=== PATIENT | male | born 1960 | race African-American/Black ===

== ENCOUNTER 2018-01-20 15:47 | Observation (INO) | payer OTHER ==
[2018-01-20] MEDS ORDERED: FENTANYL CITR 100 MCG/2 ML ONE (16:00)
[2018-01-20] MEDS ORDERED: BUPIVACAINE 0.5% PF 10 ML VIAL ONE ×2 (16:05→19:34)
[2018-01-20] MEDS ORDERED: CEFAZOLIN/SWI 1gm 2 GM/20 ML SYR ONE (16:21)
--- NOTE | 2018-01-20 17:10 | RAD REPORT ---
EXAM DESCRIPTION: RAD - Hand Left 3 View - 01/20/2018 4:29 pm CLINICAL HISTORY: Smash injury distal fingers COMPARISON: None. FINDINGS: Fracture is present obliquely through the tuft distal first phalanx. Very minimal distract ion is seen. There is a comminuted fracture of the distal phalanx third digit with significant soft t issue injury. There are multiple free fracture fragments present. There is displacement and angulatio n within the significantly injured soft tissues. Comminuted fractures present involving the tuft of the fourth distal phalanx ventral displacement of the small fracture fragments. There is significant soft tissue injury distal fourth digit as well. Elsewhere in the hand no suspicious finding noted. No foreign body in the soft tissues confirmed. Sma ll skin contaminant sore present. IMPRESSION: Comminuted distal phalanx fracture is third and fourth digits. Minimal nondisplaced fracture tuft of the second digit
[2018-01-20] MEDS ORDERED: ONDANSETRON 4 MG/2 ML VIAL IV PRN (18:50)
[2018-01-20] MEDS ORDERED: ACETAMINOPHEN 500 MG TAB PO PRN (18:50)
--- NOTE | 2018-01-20 19:13 | EDPHYS ---
Physician Documentation [facility] Name: Baljit Avery Age: 57 yrs Sex: Male : 1960 Arrival Date: 01/20/2018 Time: 15:49 Bed 26 Private MD: ED Physician Fausto Freedman HPI: 01/20 16:52 This 57 yrs old Black Male presents to ER via Ambulatory with complaints of Finger jmm Injury. 16:52 The patient or guardian reports deformity, injury. The complaints affect the dorsal jmm aspect of distal phalanx of left index finger, dorsal aspect of distal phalanx of left middle finger, dorsal aspect of distal phalanx of left ring finger, left index fingernail, left middle fingernail and left ring fingernail. Onset: The symptoms/episode began/occurred acutely, just prior to arrival. Patient states his left hand was crushed while attaching a trailer to a truck. The trailer crushed his hand against cement. Patient states he is UTD on tetanus immunization. . Historical: - Allergies: 15:55 No Known Allergies; ch - PMHx: 15:55 Hyperlipidemia; Hypertension; ch - PSHx: 15:55 back, R finger; ch - Immunization history:: Adult Immunizations up to date. - Social history:: Smoking status: Patient/guardian denies using tobacco. - Ebola Screening: : Patient negative for fever greater than or equal to 101.5 degrees Fahrenheit, and additional compatible Ebola Virus Disease symptoms Patient denies exposure to infectious person Patient denies travel to an Ebola-affected area in the 21 days before illness onset No symptoms or risks identified at this time. ROS: 16:52 Constitutional: Negative for fever, chills, and weight loss, Cardiovascular: Negative jmm for chest pain, palpitations, and edema, Respiratory: Negative for shortness of breath, cough, wheezing, and pleuritic chest pain. 16:52 MS/extremity: Positive for pain, swelling. 16:52 Neuro: Negative for weakness. 16:52 All other systems are negative. Exam: 16:52 Head/Face: atraumatic. jmm 16:52 Constitutional: The patient appears alert, awake, uncomfortable. 16:52 Cardiovascular: Rate: normal. 16:52 Respiratory: the patient does not display signs of respiratory distress, Respirations: normal. 16:52 Musculoskeletal/extremity: ROM: lacerations and macerations noted to the left 2nd 3rd and 4th fingers. worse on the 3rd phalanx. 3rd distal phalanx cool to the touch. 16:52 Skin: multiple lacerations noted to the left 2nd, 3rd, and 4th distal phalanx. 16:52 Neuro: Orientation: is normal, Mentation: is normal, Memory: is normal, Gait: is steady. Vital Signs: 15:55 BP 182 / 92; Pulse 110; Resp 26; Temp 98.8; Pulse Ox 99% on R/A; Weight 85.28 kg; ch Height 5 ft. 11 in. (180.34 cm); Pain 10/10; 16:33 BP 171 / 106; Pulse 68; Resp 16; Pulse Ox 99% on R/A; mb3 19:00 BP 171 / 129; Pulse 72; Resp 18; Pulse Ox 99% on R/A; mb3 15:55 Body Mass Index 26.22 (85.28 kg, 180.34 cm) ch Laceration: 18:05 Wound Repair of 3cm ( 1.2in ) subcutaneous laceration to dorsal aspect of distal jmm phalanx of right index finger, dorsal aspect of distal phalanx of right middle finger and right middle fingernail. Distal neuro/vascular/tendon intact. Anesthesia: Digital block administered with 8 mls of 0.5% marcaine. Wound prep: Extensive cleansing with betadine by ri, Wound irrigation with saline by ri, Copious irrigation. Skin closed with 7 5-0 Prolene using simple sutures and sterile technique. Dressed with non-adherent dressing. Patient tolerated well. MDM: 16:[address] [facility] 16:52 Differential diagnosis: open fracture, laceration. Data reviewed: vital signs, nurses [facility] notes. 18:05 Data reviewed: radiologic studies, plain films. ED course: Dr. Freedman discussed the [facility] patient with Dr. Archuleta who will visit with the patient in the morning. Requests we admit the patient to hospitalist or PCP.. ED course: I discussed the patient with Dr. Cadet whom accepted admission. ED course: Patient will be admitted due to open fractures of the distal phalanx and hand surgery evaluation. Patient has been administered IV abx in the ED and the patient states he has had a tetanus immunization over the past 5 years. . 01/20 18:55 Order name: Basic Metabolic Panel [facility] 01/20 18:55 Order name: Basic Metabolic Panel [facility] 01/20 15:57 Order name: XRAY Hand LEFT 3 View; Complete Time: 17:56 01/20 18:55 Order name: CBC with Automated Diff [facility] 01/20 18:55 Order name: CBC with Automated Diff [facility] 01/20 16:59 Order name: Dressing - Wound; Complete Time: 19:[address] [facility] 01/20 16:59 Order name: Gloves, Sterile; Complete Time: 19:[address] [facility] 01/20 16:59 Order name: Setup Suture Tray; Complete Time: 19:[address] [facility] 01/20 18:55 Order name: CONS Physician Consult [facility] 01/20 18:55 Order name: NPO [facility] 01/20 18:55 Order name: Regular EDMS Administered Medications: 16:05 Drug: fentaNYL (PF) 50 mcg Route: IVP; Site: right antecubital; mb3 19:58 Follow up: Response: No adverse reaction mb3 16:35 Drug: Ancef 2 grams Route: IVPB; Infused Over: 30 mins; Site: right antecubital; mb3 19:57 Follow up: Response: No adverse reaction; IV Status: Completed infusion; IV Intake: mb3 100ml Disposition: 01/20/18 19:13 Hospitalization ordered by Linus Cadet for Observation. Preliminary diagnosis is Displaced fracture of distal phalanx of finger. - Bed requested for Telemetry/MedSurg (observation). - Status is Observation. mb3 - Condition is Stable. - Problem is new. - Symptoms have improved. UTI on Admission? No Addendum: 01/28/2018 11:52 Co-signature as Attending Physician, Fausto Freedman MD. g s Signatures: Dispatcher [employer] ED[facility] Nalini Jones RN RN ch Webb, Martha RN Analisa Delgado RN RN dw Mickail, Joel, PA PA jmm Starr, Gregory, MD MD gs Barnett, Mark, RN RN mb3 Corrections: (The following items were deleted from the chart) 01/20 19:31 19:13 Hospitalization Ordered by Linus Cadet MD for Observation. Preliminary diagnosis dw is Displaced fracture of distal phalanx of finger. Bed requested for Telemetry/MedSurg (observation). Status is Observation. Condition is Stable. Problem is new. Symptoms have improved. UTI on Admission? No. jmm 19:45 19:31 01/20/2018 19:13 Hospitalization Ordered by Linus Cadet MD for Observation. mw Preliminary diagnosis is Displaced fracture of distal phalanx of finger. Bed requested for Telemetry/MedSurg (observation). Status is Observation. Condition is Stable. Problem is new. Symptoms have improved. UTI on Admission? No. dw 20:27 19:45 01/20/2018 19:13 Hospitalization Ordered by Linus Cadet MD for Observation. mb3 Preliminary diagnosis is Displaced fracture of distal phalanx of finger. Bed requested for Telemetry/MedSurg (observation). Status is Observation. Condition is Stable. Problem is new. Symptoms have improved. UTI on Admission? No. mw
--- NOTE | 2018-01-20 19:13 | ER ---
Nurse's Notes [facility] Name: Baljit Avery Age: 57 yrs Sex: Male : 1960 Arrival Date: 01/20/2018 Time: 15:49 Bed 26 Private MD: Diagnosis: Displaced fracture of distal phalanx of finger Presentation: 01/20 15:53 Presenting complaint: Patient states: L hand crushed when hitching a trailer to the truck. Transition of care: patient was not received from another setting of care. Onset of symptoms was January 20, 2018 at 15:00. Risk Assessment: Do you want to hurt yourself or someone else? Patient reports no desire to harm self or others. Initial Sepsis Screen: Does the patient meet any 2 criteria? No. Patient's initial sepsis screen is negative. Does the patient have a suspected source of infection? No. Patient's initial sepsis screen is negative. Care prior to arrival: None. 15:53 Method Of Arrival: Ambulatory 15:53 Acuity: JAYNA 2 Triage Assessment: 15:55 General: Appears distressed, uncomfortable, Behavior is cooperative. Pain: Complains of pain in left hand. Musculoskeletal: Bony deformity noted of left hand. Historical: - Allergies: 15:55 No Known Allergies; - PMHx: 15:55 Hyperlipidemia; Hypertension; - PSHx: 15:55 back, R finger; - Immunization history:: Adult Immunizations up to date. - Social history:: Smoking status: Patient/guardian denies using tobacco. - Ebola Screening: : Patient negative for fever greater than or equal to 101.5 degrees Fahrenheit, and additional compatible Ebola Virus Disease symptoms Patient denies exposure to infectious person Patient denies travel to an Ebola-affected area in the 21 days before illness onset No symptoms or risks identified at this time. Screenin:05 Abuse screen: Denies threats or abuse. Nutritional screening: No deficits noted. mb3 Tuberculosis screening: No symptoms or risk factors identified. Fall Risk None identified. Assessment: 16:05 General: General: Appears distressed, uncomfortable, well groomed, Behavior is mb3 cooperative, appropriate for age, anxious. 16:05 Pain: Complains of pain in left hand. Neuro: No deficits noted. Level of Consciousness mb3 is awake, alert, obeys commands. Cardiovascular: No deficits noted. Heart tones S1 S2 present Capillary refill < 3 seconds Patient's skin is warm and dry. Respiratory: No deficits noted. Airway is patent Respiratory effort is even, unlabored, Respiratory pattern is regular, symmetrical, Breath sounds are clear bilaterally. GI: No deficits noted. No signs and/or symptoms were reported involving the gastrointestinal system. : No deficits noted. No signs and/or symptoms were reported regarding the genitourinary system. Musculoskeletal: partial amputation to 2nd and 3rd finger of left hand. Injury Description: Crush injury sustained to dorsal aspect of distal phalanx of left index finger, dorsal aspect of distal phalanx of left middle finger, dorsal aspect of middle phalanx of left middle finger, dorsal aspect of distal phalanx of left ring finger, dorsal aspect of middle phalanx of left ring finger and left index fingernail is macerated Deformity sustained to dorsal aspect of distal phalanx of left middle finger. 19:02 Reassessment: Patient and/or family updated on plan of care and expected duration. Pain mb3 level reassessed. Patient is alert, oriented x 3, equal unlabored respirations, skin warm/dry/pink. repair done by Brandon MORRIS, waiting on admit room Patient states symptoms have improved. Vital Signs: 15:55 BP 182 / 92; Pulse 110; Resp 26; Temp 98.8; Pulse Ox 99% on R/A; Weight 85.28 kg; Height 5 ft. 11 in. (180.34 cm); Pain 10/10; 16:33 BP 171 / 106; Pulse 68; Resp 16; Pulse Ox 99% on R/A; mb3 19:00 BP 171 / 129; Pulse 72; Resp 18; Pulse Ox 99% on R/A; mb3 15:55 Body Mass Index 26.22 (85.28 kg, 180.34 cm) ED Course: 15:49 Patient arrived in ED. 15:52 Brandon Jo PA is PHCP. [facility] 15:52 Fausto Fredeman MD is Attending Physician. [facility] 15:54 Triage completed. 15:55 Arm band placed on left wrist. Patient placed in an exam room, on a stretcher. 15:57 Stephen Nick, TERRANCE is Primary Nurse. mb3 16:00 Patient has correct armband on for positive identification. Bed in low position. Call mb3 light in reach. Side rails up X 1. 16:05 Inserted saline lock: 18 gauge in right antecubital area, using aseptic technique. mb3 Blood collected. 16:29 XRAY Hand LEFT 3 View In Process Unspecified. EDMS 19:11 Linus Cadet MD is Hospitalizing Provider. jmm 19:47 No provider procedures requiring assistance completed. Patient admitted, IV remains in mb3 place. Administered Medications: 16:05 Drug: fentaNYL (PF) 50 mcg Route: IVP; Site: right antecubital; mb3 19:58 Follow up: Response: No adverse reaction mb3 16:35 Drug: Ancef 2 grams Route: IVPB; Infused Over: 30 mins; Site: right antecubital; mb3 19:57 Follow up: Response: No adverse reaction; IV Status: Completed infusion; IV Intake: mb3 100ml Intake: 19:57 IV: 100ml; Total: 100ml. mb3 Outcome: 19:13 Decision to Hospitalize by Provider. jmm 19:48 Admitted to Med/surg accompanied by tech, via stretcher, room 221, with chart, Report mb3 called to Deanna Galvin RN 19:50 Condition: stable mb3 19:50 Instructed on the need for admit. 20:27 Patient left the ED. mb3 Signatures: Dispatcher [employer] EDMS Nalini Jones, RN RN Brandon Rodriguez PA PA jmm Barnett, Mark, RN RN mb3 Corrections: (The following items were deleted from the chart) 16:03 15:55 General: Appears in no apparent distress. uncomfortable, Behavior is cooperative, [facility] 16:58 16:54 General: mb3 mb3
[2018-01-20] MEDS: NA CHLORIDE 0.9% 1,000 ML IV SCH (21:17)
--- NOTE | 2018-01-20 21:47 | P.SSS ---
Patient History Date of Service: 01/20/18 Reason for admission: CRUSHED HAND TRYING TO HELP A FRIEND WITH TRAILER History of Present Illness: MR. 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 IT FELL ON HIS L HAND AND CRUSHED IT. Allergies No Known Allergies Allergy (Verified 01/20/18 21:22) Home Medications: ALPRAZolam [Alprazolam] 2 mg PO TIDP PRN 01/20/18 Amlodipine/Valsartan/Hcthiazid [Exforge Hct 10-320-25 mg Tab] 1 tab PO DAILY 03/02 Carisoprodol 1 tab PO QIDP PRN 01/20/18 Carvedilol 12.5 mg PO BID 01/20/18 Clonidine HCl [Catapres*] 0.2 mg PO BID 01/20/18 Hydrocodone/Acetaminophen [Vicodin Hp 10-325 mg Tablet] 1 each PO BID 01/20/18 Zolpidem Tartrate 5 mg PO BEDTIME PRN PRN 01/20/18 - Past Medical/Surgical History Has patient received pneumonia vaccine in the past: Yes Diabetic: No -: HTN -: hyperlipidemia -: Back surgery -: index finger surg - Family History Mother -: Hypertension, Stroke Father -: Hypertension, Stroke Sister -: Hypertension, Stroke - Social History Smoking Status: Never smoker Alcohol use: No CD- Drugs: No Caffeine use: Yes Place of Residence: Home Review of Systems 10-point ROS is otherwise unremarkable Musculoskeletal: Hand Pain (NOT MUCH WHEN I VISITED HIM.) Physical Examination - Vital Signs Temperature: 98.8 F Blood Pressure: 171/129 Pulse: 72 Respirations: 18 - Physical Exam General: Alert, Mild distress HEENT: Atraumatic, PERRLA, Mucous membr. moist/pink, EOMI, Sclerae nonicteric Neck: Supple, 2+ carotid pulse no bruit, No LAD, Without JVD or thyroid abnormality Respiratory: Clear to auscultation bilaterally, Normal air movement Cardiovascular: Regular rate/rhythm, Normal S1 S2 Gastrointestinal: Normal bowel sounds, No tenderness Musculoskeletal: No tenderness, Other (L HAND HAS OPEN WOUNDS WITH CRUSHED TWO MID FINGER,DISTAL.) Integumentary: No rashes Neurological: Normal gait, Normal speech, Normal strength at 5/5 x4 extr, Normal tone, Normal affect Lymphatics: No axilla or inguinal lymphadenopathy - Diagnosis (Problem(s)) (1) Crushing injury of hand Current Visit: Yes Status: Acute Plan: PER DR BUCIO I ASKED THE PA TO CALL OR AND BOOK A TIME FOR HIM HE WILL BE HERE ONLY OVERNIGHT. USUALLY INSURANCE COMPANIES ONLY APPROVE OBSERVATION STAY FOR THIS KIND OF ISSUES PAIN MX COVER THE WOUNDS UNTIL AM. - Disposition Disposition: ROUTINE DISCHARGE
[2018-01-20] MEDS ORDERED: ZOLPIDEM TARTRATE 5 MG TABLET PO PRN (21:49)
[2018-01-20] MEDS ORDERED: ALPRAZOLAM 1 MG TABLET PO PRN (21:49)
[2018-01-20 22:19] VITALS: BMI 26.2
[2018-01-20 22:36] LABS: Urine Appearance CLEAR; Urine Bilirubin NEGATIVE (NEG); Urine Blood TRACE (NEG); Urine Color YELLOW; Urine Glucose NEGATIVE (NEG); Urine Protein NEGATIVE (NEG); Urine Urobilinogen 0.2 mg/dL (0.2-1.0)
[2018-01-20 22:45] LABS: Urine Microscopic Reflex ORDER UMIC
[2018-01-20 23:06] LABS: Urine Bacteria <20 /HPF (NONE SEEN); Urine Culture Reflex Order NOT NEEDED; Urine RBC <5 /HPF (NONE SEEN)
[2018-01-21] MEDS ORDERED: CEFAZOLIN/SWI 1gm 1 GM/10 ML SYR ONE (00:11)
[2018-01-21] MEDS: NA CHLORIDE 0.9% 1,000 ML IV SCH ×3 (00:45→09:20)
[2018-01-21] MEDS ORDERED: CEFAZOLIN/SWI 1gm 1 GM/10 ML SYR IVP SCH ×2 (01:00→09:00)
[2018-01-21 04:55] LABS: Absolute Lymphocytes (CBC) 1.3 K/uL (0.7-4.9); Absolute Monocytes 0.6 K/uL (0.1-1.3); Absolute Neutrophil 3.1 K/uL (1.8-8.0); Basophils % 0.5 % (0-1.3); Hematocrit 36.4 % (39.6-49.0); Lymphocytes % 24.9 % (15.3-44.8); MCH 28.9 pg (27.0-35.0); MCV 89.5 fL (80-100); MPV 8.4 fL (7.6-11.3); RBC Red Blood Cell Count 4.06 M/uL (4.33-5.43)
[2018-01-21 05:09] LABS: BUN Blood Urea Nitrogen 10 mg/dL (6-20); Bicarbonate 28 mEq/L (21-31); Glucose Level 115 mg/dL (65-120); Potassium 3.5 mEq/L (3.6-5.0); Sodium Level 139 mEq/L (135-145)
[2018-01-21] MEDS: MORPHINE 4 MG/ML SYR IV PRN ×2 (05:37→12:41)
[2018-01-21] MEDS ORDERED: AMLODIPINE 10 MG TAB PO SCH (09:00)
[2018-01-21] MEDS ORDERED: VALSARTAN 160 MG TAB PO SCH (09:00)
[2018-01-21] MEDS ORDERED: hydroCHLOROthiazide 25 MG TAB PO SCH (09:00)
[2018-01-21] MEDS ORDERED: CARVEDILOL 12.5 MG TAB PO SCH (09:00)
[2018-01-21] MEDS ORDERED: cloNIDine HCl 0.1 MG TAB PO SCH (09:00)
[2018-01-21] MEDS ORDERED: MIDAZOLAM HCL 2 MG/2 ML INJ ONE (09:03)
[2018-01-21] MEDS ORDERED: PROPOFOL 200 MG/20 ML VIAL IV ONE (09:03)
[2018-01-21] MEDS ORDERED: LIDOCAINE 2% MPF 5 ML VIAL ONE (09:03)
[2018-01-21] MEDS ORDERED: FENTANYL CITR 100 MCG/2 ML ONE (09:04)
[2018-01-21] MEDS ORDERED: BUPIVACAINE 0.5% PF 10 ML VIAL SQ ONE (10:30)
[2018-01-21] MEDS ORDERED: BUPIVACAINE 0.5% PF 10 ML VIAL ONE (10:31)
[2018-01-21] MEDS ORDERED: MEPERIDINE HCL 25 MG/0.5 ML ONE (10:36)
--- NOTE | 2018-01-21 10:49 | RAD REPORT ---
EXAM DESCRIPTION: RAD - Hand Left 2 View - 01/21/2018 10:40 am CLINICAL HISTORY: Fracture fixation COMPARISON: January 20 FINDINGS: Portable C-arm views were obtained during fluoroscopic assisted placement of fracture fixa tion hardware. No suspicious or unexpected finding.
[2018-01-21 11:13] VITALS: O2SAT 100
[2018-01-21 12:24] VITALS: BP 147/87; TEMP 97.7
--- NOTE | 2018-01-21 21:38 | OP ---
Surgeon: Lawrence Archuleta MD Financial Coordinator: Emile. Preoperative Diagnosis: Open fracture of the tips of the left index, middle, and ring finger. Postoperative Diagnosis: Open fracture of the tips of the left index, middle, and ring finger. Procedure Performed: Debridement of skin, subcutaneous tissue, index, middle, and ring, debridement of bone of the middle, simple closure of 4 cm of the index, 6 cm of the ring, flap closure of the mid dle, open reduction and internal fixation of distal phalanx of left middle finger with K-wire arthrod esis of the distal interphalangeal joint and splint, nail bed repair of the index, middle, and ring f mayela. Anesthesia: General. Procedure In Detail: After satisfactory induction of general anesthesia, left hand was prepped with Betadine scrub, Betadine paint, and dry sterile drapes were applied in the usual manner. Arm was elevated and exsanguinated with Esmarch. Tourniquet was inflated to 250 mmHg Hand was placed on the [place] table. The wounds were jet lavaged, irrigated with 3 L of dilute Beta dine solution after skin, subcu tissue were debrided and nail plate was removed. The patient then bray d the fingers approached. The ring finger was approached first. The nail bed was debrided full skin and then the nail bed repair with 6-0 PDS and the skin closed with 4-0 Prolene. Length of the incis ion was approximately 6 cm total. The finger was approached next. Again skin and subcutaneous tissu e has been debrided, but repaired with 6-0 PDS and then skin closed with 4-0 Prolene simple sutures. Attention was turned to the middle finger, which had significant damage. Skin and subcutaneous tiss ue were debrided as well as the portions of the bone and then a K-wire was placed from distal to prox imal through the distal fracture fragment into the proximal fragment and then arthodesing the DIP arturo nt with 0.028 was used. Then, nail bed was repaired with 6-0 PDS and then skin was cut, flaps advanc ed, closed with 4-0 Prolene simple sutures. Nail plates were placed back and sewn in place proximall y with 4-0 Prolene. Tourniquet released. Dressed with Xeroform, 2 inch Alex, and splint holding th e PIP, DIP with extension of the middle finger. The patient tolerated the procedure well and well an d returned to recovery. RADHA/FERCHO Voice ID: [id number] Report ID: [id number]
== END 2018-01-21 14:08 | disposition home or self-care (01) ==
LOC: ER 15:47 → ERHOLD 18:48 → 2ND 19:52
PROVIDERS: ADMIT Internal Medicine; ATTEND Internal Medicine
PROC: 0XQTXZZ Repair Left Ring Finger, External Approach (ICD-10-PCS; 2018-01-21)
PROC: 0PDV0ZZ Extraction of Left Finger Phalanx, Open Approach (ICD-10-PCS; 2018-01-21)
PROC: 0HQQXZZ Repair Finger Nail, External Approach (ICD-10-PCS; 2018-01-21)
PROC: 0PSV04Z Reposition Left Finger Phalanx with Internal Fixation Device, Open Approach (ICD-10-PCS; 2018-01-21)
PROC: 0XQPXZZ Repair Left Index Finger, External Approach (ICD-10-PCS; principal; 2018-01-21 09:00)
DX: S62.601B Fracture of unspecified phalanx of left index finger, initial encounter for open fracture (principal); S62.603B Fracture of unspecified phalanx of left middle finger, initial encounter for open fracture; S62.605B Fracture of unspecified phalanx of left ring finger, initial encounter for open fracture; W23.0XXA Caught, crushed, jammed, or pinched between moving objects, initial encounter; Y92.009 Unspecified place in unspecified non-institutional (private) residence as the place of occurrence of the external cause; I10 Essential (primary) hypertension; E78.5 Hyperlipidemia, unspecified
CPT/HCPCS: 36415; 80048; 81003; 81015; 85025; 88304; 88305; 88311; 96365; 96366; 96375; 99285; G0378; J0690; J2175; J2250; J3010; J7030

== ENCOUNTER 2018-02-03 08:11 | Day surgery (SDC) | payer OTHER ==
[2018-02-03] MEDS ORDERED: Ringers Lactate 1,000 ML IV ONE (08:23)
[2018-02-03] MEDS ORDERED: FENTANYL CITR 100 MCG/2 ML ONE (08:32)
[2018-02-03] MEDS ORDERED: PROPOFOL 200 MG/20 ML VIAL IV ONE (08:32)
[2018-02-03] MEDS ORDERED: MIDAZOLAM HCL 2 MG/2 ML INJ ONE (08:32)
[2018-02-03] MEDS ORDERED: LIDOCAINE 1% MPF 5 ML VIAL ONE (08:32)
[2018-02-03] MEDS ORDERED: CEFAZOLIN/SWI 1gm 1 GM/10 ML SYR ONE (08:37)
[2018-02-03] MEDS ORDERED: KETOROLAC 30 MG/ML INJ ONE (09:16)
[2018-02-03] MEDS ORDERED: BUPIVACAINE 0.5% PF 10 ML VIAL ONE (09:26)
[2018-02-03] MEDS ORDERED: MEPERIDINE HCL 25 MG/0.5 ML ONE ×3 (09:46→09:54)
[2018-02-03] MEDS ORDERED: HYDROMORPHONE HCL 1 MG/ML INJ ONE (09:55)
[2018-02-03] MEDS: HYDROMORPHONE HCL 1 MG/ML INJ ONE ×2 (10:00→10:05)
[2018-02-03] MEDS ORDERED: MEPERIDINE HCL 50 MG/ML AMP ONE (10:18)
[2018-02-03 10:50] VITALS: O2SAT 98
[2018-02-03 12:33] VITALS: BP 120/77; TEMP 98
--- NOTE | 2018-02-03 21:07 | OP ---
Surgeon: Lawrence Archuleta MD Load Manager: Emile. Preoperative Diagnosis: Gangrene of the left middle finger, status post crush injury. Postoperative Diagnosis: Gangrene of the left middle finger, status post crush injury. Procedure: Debridement of skin, subcutaneous tissue, bone, and flap closure. Anesthesia: General. Procedure In Detail: After satisfactory induction of general anesthesia, the left arm was prepped wi th Betadine scrub, Betadine paint, dry sterile drapes placed in the usual manner. The arm was elevat ed, exsanguinated with an Esmarch, tourniquet inflated to 250 mmHg. Hand was placed on a [place] tab le. Sutures were removed from the previous closure, where the patient had dry gangrene of the left l ittle finger tip. The patient's gangrenous finger was excised. Bone fragments were then removed by using a bone cutter, and then the bone was filed. The wound was jet lavaged and irrigated with 3 L o f dilute Betadine solution. Then, the patient had the volar flap advanced, lateral flap excised, and wound closed with 4-0 prolene simple sutures. Dressed with Xeroform, 2 inch Alex. The patient erlinda erated the procedure well and returned to Recovery. RADHA/MODL Voice ID: [id number] Report ID: [id number]
== END 2018-02-03 11:35 | disposition home or self-care (01) ==
LOC: OR 08:11
PROVIDERS: ATTEND Specialist
PROC: 0HXCXZZ Transfer Left Upper Arm Skin, External Approach (ICD-10-PCS; 2018-02-03)
PROC: 0PBV0ZZ Excision of Left Finger Phalanx, Open Approach (ICD-10-PCS; principal; 2018-02-03 09:00)
DX: M87.245 Osteonecrosis due to previous trauma, left finger(s) (principal)
CPT/HCPCS: 88304; J0690; J1170; J2175; J2250; J3010

== ENCOUNTER 2019-04-21 17:41 | Emergency (ER) | payer OTHER ==
[2019-04-21 20:00] LABS: Albumin 4.9 g/dL (3.4-5.0); Bilirubin Direct 0.2 mg/dL (0-0.2); Bilirubin Total 0.6 mg/dL (0.2-1.0); Potassium 3.6 mmol/L (3.5-5.1); Protein, Total 9.2 g/dL (6.4-8.2)
[2019-04-21 20:05] LABS: Absolute Lymphocytes (CBC) 1.4 K/uL (0.7-4.9); Basophils % 0.3 % (0-1.3); Hematocrit 45.5 % (39.6-49.0); Lymphocytes % 13.2 % (15.3-44.8); MPV 9.4 fL (7.6-11.3)
[2019-04-21 20:07] LABS: Urine Mucus 2+ /HPF (NONE SEEN); Urine RBC <5 /HPF (NONE SEEN)
[2019-04-21 20:08] LABS: Urine Bacteria 20-50 /HPF (NONE SEEN)
[2019-04-21 20:09] LABS: Urine Amorphous Sediment 2+ /HPF (NONE SEEN); Urine Culture Reflex Order REFLEXED
[2019-04-21 20:43] LABS: Urine Blood 1+ (NEG); Urine Glucose NEGATIVE (NEG); Urine Protein 2+ (NEG); Urine pH 5.5 (5.0-7.0)
[2019-04-21] MEDS ORDERED: MORPHINE 4 MG/ML SYR ONE (20:44)
[2019-04-21] MEDS ORDERED: ONDANSETRON 4 MG/2 ML VIAL ONE (20:44)
[2019-04-21] MEDS ORDERED: NA CHLORIDE 0.9% 1,000 ML ONE (20:44)
--- NOTE | 2019-04-21 20:45 | RAD REPORT ---
EXAM DESCRIPTION: CT - Abdomen Pelvis W Contrast - 04/21/2019 8:33 pm CLINICAL HISTORY: Abdominal pain with vomiting and diarrhea COMPARISON: none. TECHNIQUE: Computed axial tomography of the abdomen pelvis was obtained. 100 cc Isovue-300 was admin istered intravenously. Oral contrast was not requested which limits evaluation of bowel. All CT scans are performed using dose optimization technique as appropriate and may include automated exposure control or mA/KV adjustment according to patient size. FINDINGS: The liver, spleen, pancreas, adrenal and kidneys appear unremarkable. Small hepatic cyst There is no evidence of diverticulitis. Fluid is present throughout the small bowel. The wall of several loops mildly thickened. It appears t hat the patient has had an appendectomy. Mild anterior subluxation L5 on S1. Spondylolysis L5 Small left inguinal hernia contains fat IMPRESSION: Fluid throughout small bowel with mild thickening of the wall of several loops may indic ate inflammation
[2019-04-21] MEDS ORDERED: CEFTRIAXONE/SWI 1gm 1 GM/10 ML SYR ONE (21:30)
--- NOTE | 2019-04-21 21:44 | ER ---
Nurse's Notes [facility] Name: Baljit Avery Age: 58 yrs Sex: Male : 1960 Arrival Date: 04/21/2019 Time: 17:45 Bed 18 Private MD: Linus Cadet V Diagnosis: Diarrhea, unspecified;Nausea and vomiting;Urinary tract infection, site not specified Presentation: 04/21 18:08 Presenting complaint: Patient states: "I got stung by some bee on Wednesday, then an aj1 hour and a half later I started throwing up and having diarrhea" Patient reports that he got stung on the face. Denies fever. Reports abdominal pain. Transition of care: patient was not received from another setting of care. Onset of symptoms was April 19, 2019. Risk Assessment: Do you want to hurt yourself or someone else? Patient reports no desire to harm self or others. Initial Sepsis Screen: Does the patient meet any 2 criteria? HR > 90 bpm. No. Patient's initial sepsis screen is negative. Does the patient have a suspected source of infection? Yes: Acute abdominal pain. Care prior to arrival: None. 18:08 Method Of Arrival: Ambulatory aj1 18:08 Acuity: JAYNA 3 aj1 Triage Assessment: 18:15 General: Appears in no apparent distress. uncomfortable, Behavior is calm, cooperative, aj1 appropriate for age. Pain: Complains of pain in abdomen Pain currently is 8 out of 10 on a pain scale. Neuro: Level of Consciousness is awake, alert, obeys commands, Oriented to person, place, time, situation. Cardiovascular: Patient's skin is warm and dry. Respiratory: Airway is patent Respiratory effort is even, unlabored, Respiratory pattern is regular, symmetrical. GI: Reports diarrhea, vomiting. Historical: - Allergies: 18:15 No Known Allergies; aj1 - PMHx: 18:15 Hyperlipidemia; Hypertension; aj1 - Immunization history:: Adult Immunizations up to date. - Ebola Screening: : Patient denies travel to an Ebola-affected area in the 21 days before illness onset. - Social history:: Smoking status: Patient uses tobacco products, denies chronic smoking, but will smoke occasionally. Screenin:12 Abuse screen: Denies threats or abuse. Denies injuries from another. Nutritional cc3 screening: No deficits noted. Tuberculosis screening: No symptoms or risk factors identified. Fall Risk Ambulatory Aid- None/Bed Rest/Nurse Assist (0 pts). Gait- Normal/Bed Rest/Wheelchair (0 pts) Mental Status- Oriented to own ability (0 pts). Assessment: 19:15 General: Appears in no apparent distress. uncomfortable, Behavior is calm, cooperative, cc3 appropriate for age. Pain: Complains of pain in abdomen. Neuro: Level of Consciousness is awake, alert, obeys commands, Oriented to person, place, time, situation, Appropriate for age. Cardiovascular: Denies chest pain, Capillary refill < 3 seconds Patient's skin is warm and dry. Respiratory: Airway is patent Respiratory effort is even, unlabored, Respiratory pattern is regular, symmetrical. GI: Abdomen is round non-distended. : No signs and/or symptoms were reported regarding the genitourinary system. EENT: No signs and/or symptoms were reported regarding the EENT system. Derm: Skin is intact, is healthy with good turgor, Skin is pink, warm \\T\\ dry. normal. Musculoskeletal: Circulation, motion, and sensation intact. Range of motion: intact in all extremities. 20:25 Reassessment: Patient appears in no apparent distress at this time. Patient and/or cc3 family updated on plan of care and expected duration. Pain level reassessed. Patient is alert, oriented x 3, equal unlabored respirations, skin warm/dry/pink. 21:18 Reassessment: Patient appears in no apparent distress at this time. Patient and/or cc3 family updated on plan of care and expected duration. Pain level reassessed. Patient is alert, oriented x 3, equal unlabored respirations, skin warm/dry/pink. Patient denies pain at this time. Patient states feeling better. 22:20 Reassessment: Patient appears in no apparent distress at this time. Patient and/or cc3 family updated on plan of care and expected duration. Pain level reassessed. Patient is alert, oriented x 3, equal unlabored respirations, skin warm/dry/pink. PA Page discharged the patient home with prescriptions given. IV cannula removed and patient left ER vitally stable and ambulatory with his . No valuables left in the patient's room. Patient denies pain at this time. Patient states feeling better. Patient states symptoms have improved. Vital Signs: 18:15 BP 164 / 105; Pulse 92; Resp 18; Temp 99.0; Pulse Ox 99% on R/A; Weight 85.28 kg (R); aj1 Height 5 ft. 11 in. (180.34 cm) (R); Pain 8/10; 19:30 BP 158 / 97; Pulse 90; Resp 17 S; Pulse Ox 99% on R/A; cc3 20:45 BP 145 / 83; Pulse 88; Resp 17 S; Pulse Ox 99% on R/A; cc3 22:00 BP 148 / 87; Pulse 89; Resp 18 S; Pulse Ox 98% on R/A; cc3 18:15 Body Mass Index 26.22 (85.28 kg, 180.34 cm) aj1 ED Course: 17:45 Patient arrived in ED. as 17:45 Linus Cadet MD is Private Physician. as 18:09 Triage completed. aj1 18:15 Arm band placed on Patient placed in waiting room, Patient notified of wait time. aj1 19:11 Dima Park PA is PHCP. cp 19:12 Lauren Lebron is Primary Nurse. cc3 19:12 Fausto Freedman MD is Attending Physician. cp 19:12 Patient has correct armband on for positive identification. Placed in gown. Bed in low cc3 position. Call light in reach. Side rails up X 1. sales appointment coordinator on. Pulse ox on. NIBP on. 19:25 Inserted saline lock: 22 gauge in right antecubital area, using aseptic technique. cc3 Blood collected. inserted by artificial breeding technician Allyson. 20:33 CT Abd/Pelvis - IV Contrast Only In Process Unspecified. EDMS 21:43 Conrad Cates MD is Referral Physician. cp 22:20 No provider procedures requiring assistance completed. IV discontinued, intact, cc3 bleeding controlled, No redness/swelling at site. Pressure dressing applied. Administered Medications: 20:40 Drug: NS 0.9% 1000 ml Route: IV; Rate: 1 bolus; Site: right antecubital; cc3 22:15 Follow up: Response: No adverse reaction; IV Status: Completed infusion; IV Intake: cc3 1000ml 20:40 Drug: morphine 4 mg {Note: RASS 0.} Route: IVP; Site: right antecubital; cc3 21:00 Follow up: Response: No adverse reaction; Pain is decreased; RASS: Alert and Calm (0) cc3 20:45 Drug: Zofran 4 mg Route: IVP; Site: right antecubital; cc3 21:00 Follow up: Response: No adverse reaction; Nausea is decreased cc3 21:20 Drug: Rocephin - (cefTRIAXone) 1 grams Route: IVPB; Infused Over: 30 mins; Site: right cc3 antecubital; 21:25 Follow up: Response: No adverse reaction; IV Status: Completed infusion; IV Intake: [id number] Intake: 21:25 IV: 10ml; Total: 10ml. cc3 22:15 IV: 1000ml; Total: 1010ml. cc3 Outcome: 21:44 Discharge ordered by MD. cp 22:20 Discharged to home ambulatory, with family. cc3 22:20 Condition: stable 22:20 Discharge instructions given to patient, family, Instructed on discharge instructions, follow up and referral plans. medication usage, Demonstrated understanding of instructions, follow-up care, medications, Prescriptions given X 3. 22:23 Patient left the ED. cc3 Signatures: Dispatcher [employer] EDDimple Ely RN RN ajSocorro Cervantes Corey, PA PA cp Cordel, Charlene cc3
--- NOTE | 2019-04-21 21:45 | EDPHYS ---
Physician Documentation [facility] Name: Baljit Avery Age: 58 yrs Sex: Male : 1960 Arrival Date: 04/21/2019 Time: 17:45 Bed 18 Private MD: Linus Cadet V ED Physician Fausto Freedman HPI: 04/21 19:30 This 58 yrs old Black Male presents to ER via Ambulatory with complaints of Decreased cp Appetite, Vomiting/Diarrhea. 19:30 The patient presents with abdominal pain in the lower abdomen. cp 19:30 Onset: The symptoms/episode began/occurred 2 day(s) ago. The patient presents to the emergency department with nausea, that is moderate, vomiting, that is intermittent, described as bilious, diarrhea, that is continuous. Onset: The symptoms/episode began/occurred 2 day(s) ago. Possible causes: Patient reports he was stung by bee about an hour prior to onset of vomiting and diarrhea. Associated signs and symptoms: Pertinent negatives: constipation, fever, GI bleeding. Historical: - Allergies: 18:15 No Known Allergies; aj1 - PMHx: 18:15 Hyperlipidemia; Hypertension; aj1 - Immunization history:: Adult Immunizations up to date. - Ebola Screening: : Patient denies travel to an Ebola-affected area in the 21 days before illness onset. - Social history:: Smoking status: Patient uses tobacco products, denies chronic smoking, but will smoke occasionally. ROS: 19:35 Constitutional: Negative for body aches, chills, fever, poor PO intake. cp 19:35 Eyes: Negative for injury, pain, redness, and discharge. cp 19:35 ENT: Negative for drainage from ear(s), ear pain, sore throat, difficulty swallowing, difficulty handling secretions. 19:35 Cardiovascular: Negative for chest pain, palpitations. 19:35 Respiratory: Negative for cough, shortness of breath, wheezing. 19:35 Abdomen/GI: Positive for abdominal pain, nausea, vomiting, and diarrhea, anorexia, Negative for constipation, black/tarry stool, rectal bleeding. 19:35 Back: Negative for radiated pain. 19:35 Neuro: Negative for altered mental status, headache, weakness. 19:35 All other systems are negative. Exam: 20:00 Constitutional: The patient appears in no acute distress, alert, awake, non-toxic, well cp developed, well nourished. 20:00 Head/Face: Normocephalic, atraumatic. cp 20:00 Eyes: Periorbital structures: appear normal, Conjunctiva: normal, no exudate, no injection, Sclera: no appreciated abnormality, Lids and lashes: appear normal, bilaterally. 20:00 ENT: External ear(s): are unremarkable, Nose: is normal, Mouth: Lips: moist, Oral mucosa: Posterior pharynx: is normal, airway is patent, no erythema, no exudate. 20:00 Chest/axilla: Inspection: normal, Palpation: is normal, no crepitus, no tenderness. 20:00 Cardiovascular: Rate: normal, Rhythm: regular, Edema: is not appreciated, JVD: is not appreciated. 20:00 Respiratory: the patient does not display signs of respiratory distress, Respirations: normal, no use of accessory muscles, no retractions, no splinting, no tachypnea, labored breathing, is not present, Breath sounds: are clear throughout, no decreased breath sounds, no stridor, no wheezing. 20:00 Abdomen/GI: Inspection: abdomen appears normal, Bowel sounds: active, all quadrants, Palpation: soft, in all quadrants, moderate abdominal tenderness, in the left lower quadrant, rebound tenderness, is not appreciated, involuntary guarding, is not appreciated. 20:00 Back: pain, is absent, ROM is normal. 20:00 Skin: no rash present. Vital Signs: 18:15 BP 164 / 105; Pulse 92; Resp 18; Temp 99.0; Pulse Ox 99% on R/A; Weight 85.28 kg (R); aj1 Height 5 ft. 11 in. (180.34 cm) (R); Pain 8/10; 19:30 BP 158 / 97; Pulse 90; Resp 17 S; Pulse Ox 99% on R/A; cc3 20:45 BP 145 / 83; Pulse 88; Resp 17 S; Pulse Ox 99% on R/A; cc3 22:00 BP 148 / 87; Pulse 89; Resp 18 S; Pulse Ox 98% on R/A; cc3 18:15 Body Mass Index 26.22 (85.28 kg, 180.34 cm) aj MDM: 19:15 Patient medically screened. cp 19:30 Differential diagnosis: gastroenteritis, colitis cholecystitis, Cholelithiasis, cp diverticulitis, gastritis, non-specific abd pain, pancreatitis, Peptic Ulcer Disease, Perf. Duodenal Ulcer, Perf. Gastric Ulcer, urinary tract infection. 21:42 Data reviewed: vital signs, nurses notes, lab test result(s), radiologic studies, CT cp scan. 21:42 Counseling: I had a detailed discussion with the patient and/or guardian regarding: the cp historical points, exam findings, and any diagnostic results supporting the discharge/admit diagnosis, lab results, radiology results, the need for outpatient follow up, a fiscal services director, to return to the emergency department if symptoms worsen or persist or if there are any questions or concerns that arise at home. Response to treatment: the patient's symptoms have markedly improved after treatment, VSS. Pain and nausea improved. Will treat with oral Cipro and discharge to home for continued monitoring . 04/21 19:21 Order name: Basic Metabolic Panel; Complete Time: 20:03 cp 04/21 19:21 Order name: CBC with Diff; Complete Time: 20:50 cp 04/21 19:21 Order name: Creatinine for Radiology; Complete Time: 20:03 cp 04/21 19:21 Order name: Hepatic Function; Complete Time: 20:03 cp 04/21 19:21 Order name: Lipase; Complete Time: 20:03 cp 04/21 19:21 Order name: Urine Microscopic Only; Complete Time: 20:50 cp 04/21 19:21 Order name: IV Saline Lock; Complete Time: 19:53 cp 04/21 19:50 Order name: CT Abd/Pelvis - IV Contrast Only; Complete Time: 20:50 cp 04/21 19:55 Order name: Urine Dipstick--Ancillary (enter results); Complete Time: 20:50 ar5 04/21 20:12 Order name: Urine Culture EDMS 04/21 19:21 Order name: Labs collected and sent; Complete Time: 20:53 cp 04/21 19:21 Order name: Urine Dipstick-Ancillary (obtain specimen); Complete Time: 19:53 cp 04/21 20:53 Order name: PO challenge; Complete Time: 21:35 cp Administered Medications: 20:40 Drug: NS 0.9% 1000 ml Route: IV; Rate: 1 bolus; Site: right antecubital; cc3 22:15 Follow up: Response: No adverse reaction; IV Status: Completed infusion; IV Intake: cc3 1000ml 20:40 Drug: morphine 4 mg {Note: RASS 0.} Route: IVP; Site: right antecubital; cc3 21:00 Follow up: Response: No adverse reaction; Pain is decreased; RASS: Alert and Calm (0) cc3 20:45 Drug: Zofran 4 mg Route: IVP; Site: right antecubital; cc3 21:00 Follow up: Response: No adverse reaction; Nausea is decreased cc3 21:20 Drug: Rocephin - (cefTRIAXone) 1 grams Route: IVPB; Infused Over: 30 mins; Site: right cc3 antecubital; 21:25 Follow up: Response: No adverse reaction; IV Status: Completed infusion; IV Intake: [id number] Disposition: 04/21/19 21:44 Discharged to Home. Impression: Diarrhea, unspecified, Nausea and vomiting, Urinary tract infection, site not specified. - Condition is Stable. - Discharge Instructions: Diarrhea, Adult, Nausea and Vomiting, Adult, Urinary Tract Infection, Adult. - Prescriptions for Bentyl 20 mg Oral Tablet - take 2 tablet by ORAL route every 6 hours As needed; 40 tablet. Cipro 500 mg Oral Tablet - take 1 tablet by ORAL route every 12 hours for 10 days; 20 tablet. Zofran 4 mg Oral Tablet - take 1 tablet by ORAL route every 12 hours As needed; 20 tablet. - Medication Reconciliation Form, Thank You Letter, Antibiotic Education, Prescription Opioid Use form. - Follow up: Conrad Cates MD; When: 2 - 3 days; Reason: Recheck today's complaints. - Problem is new. - Symptoms have improved. Signatures: Dispatcher [employer] Dimple Wells RN RN aj1 Dima Park PA PA cp Cordel, Charlene cc3 Corrections: (The following items were deleted from the chart) 22:23 21:44 04/21/2019 21:44 Discharged to Home. Impression: Diarrhea, unspecified; Nausea cc3 and vomiting; Urinary tract infection, site not specified. Condition is Stable. Forms are Medication Reconciliation Form, Thank You Letter, Antibiotic Education, Prescription Opioid Use. Follow up: Conrad Cates; When: 2 - 3 days; Reason: Recheck today's complaints. Problem is new. Symptoms have improved. sayra 04/22 14:04/21 16:40 Constitutional: Positive for poor PO intake, Negative for body aches, cp chills, fever, cp 04/22 14:04/21 16:40 Eyes: Negative for injury, pain, redness, and discharge, cp cp 04/22 14:04/21 16:40 ENT: Negative for drainage from ear(s), ear pain, sore throat, difficulty cp swallowing, difficulty handling secretions, cp 04/22 14:04/21 16:40 Cardiovascular: Negative for chest pain, palpitations, cp cp 04/22 14:04/21 16:40 Respiratory: Negative for cough, shortness of breath, wheezing, cp cp 04/22 14:04/21 16:40 Abdomen/GI: Positive for abdominal pain, nausea, vomiting, and diarrhea, cp Negative for constipation, black/tarry stool, rectal bleeding, cp 04/22 14:04/21 16:40 : Negative for urinary symptoms, testicular pain cp cp 04/22 14:04/21 16:40 Skin: Negative for rash, cp cp 04/22 14:04/21 16:40 Neuro: Negative for altered mental status, dizziness, headache, weakness, cpcp 04/22 14:04/21 16:40 All other systems are negative, cp cp
[2019-04-21 23:58] VITALS: BP 164/105; TEMP 99; O2SAT 99
== END 2019-04-21 22:23 | disposition home or self-care (01) ==
LOC: ER 17:41
DX: N39.0 Urinary tract infection, site not specified (principal); R19.7 Diarrhea, unspecified; R11.2 Nausea with vomiting, unspecified; Z72.0 Tobacco use
CPT/HCPCS: 96361; 85025; 87086; 80048; 36415; 80076; 83690; 74177; 96375; 96374; 99284; Q9967; J0696; J7030; J2405; 81003; 81015; 87088

== ENCOUNTER 2019-04-23 05:42 | Emergency (ER) | payer OTHER ==
[2019-04-23] MEDS ORDERED: ONDANSETRON 4 MG/2 ML VIAL ONE (06:49)
[2019-04-23] MEDS ORDERED: NA CHLORIDE 0.9% 1,000 ML ONE (06:49)
[2019-04-23] MEDS ORDERED: MORPHINE 4 MG/ML SYR ONE ×2 (06:49→07:42)
[2019-04-23] MEDS ORDERED: FAMOTIDINE 20 MG/2 ML VIAL IV ONE (06:50)
[2019-04-23 07:11] LABS: Absolute Lymphocytes (CBC) 1.2 K/uL (0.7-4.9); Basophils % 0.7 % (0-1.3); Hematocrit 37.4 % (39.6-49.0); Lymphocytes % 26.4 % (15.3-44.8); MPV 8.8 fL (7.6-11.3); RBC Red Blood Cell Count 4.18 M/uL (4.33-5.43)
[2019-04-23 07:27] LABS: ALT/SGPT 38 U/L (12-78); AST/SGOT 23 U/L (15-37); Albumin 3.7 g/dL (3.4-5.0); Alkaline Phosphatase 75 U/L (45-117); BUN Blood Urea Nitrogen 13 mg/dL (7-18); Bicarbonate 29 mmol/L (21-32); Bilirubin Direct 0.2 mg/dL (0-0.2); Bilirubin Total 0.6 mg/dL (0.2-1.0); Glucose Level 113 mg/dL (74-106); Lipase 115 U/L (73-393); Potassium 3.4 mmol/L (3.5-5.1); Protein, Total 7.3 g/dL (6.4-8.2); Sodium Level 140 mmol/L (136-145)
--- NOTE | 2019-04-23 09:36 | RAD REPORT ---
EXAM DESCRIPTION: CT - Abdomen Pelvis Wo Contrast - 04/23/2019 7:54 am CLINICAL HISTORY: worsening of abdominal pain COMPARISON: Abdomen Pelvis W Contrast dated 04/21/2019; Abdomen Pelvis Wo Contrast dated 11/28/2015 TECHNIQUE: Axial [address] imaging of the abdomen and pelvis was performed without IV contrast. No IV contrast was given because of allergy, abnormal renal function, patient refusal or physician re quest. Oral contrast was given. All CT scans are performed using dose optimization technique as appropriate and may include automated exposure control or mA/KV adjustment according to patient size. FINDINGS: No suspicious findings in the lung bases. The liver, spleen and pancreas show no suspicious findings on non-contrast imaging. Small cyst in the dome of the right lobe similar to comparison. Gallbladder and biliary tree are also without suspicio us finding. Mild hydronephrosis is seen in the right collecting system to at least the pelvic inlet and possibly down to the UVJ. No obstructing UVJ calculus. No bladder calculus is seen. No calculi in the syste m seen. There is a conical shaped area of hyperdensity in the upper pole right kidney that is probabl y mineralized parenchyma from prior infection or inflammatory process. Blood in the renal parenchyma is not suspected. No left-sided hydronephrosis. No significant adrenal finding. Isodense renal alexy s and pyelonephritis cannot be excluded in the absence of IV contrast. No bladder wall thickening or mass. Numerous pelvic floor phleboliths are present. Numerous calcifications are present in a normal size prostate gland. No gastric wall thickening or mass. No small bowel dilatation. A few fluid-filled small bowel loops a re present. Appendectomy clips are in place. Acute colon process is not identified. Stool distends bu t does not dilate a portion of the distal sigmoid colon. Obstructing mass is not evident on this stud y. No free air, free fluid or inflammatory stranding. No mass or bulky lymphadenopathy. Fat extends in to each inguinal canal. A few small inguinal nodes are present. No acute bone findings seen. Prominent degenerative change present at L5-S1. L5 pars defects are pres ent. IMPRESSION: Mild right-sided hydronephrosis without obstructing calculus identified. This can be see n with a recently passed stone. Blood or inflammatory debris within the collecting system can cause t his type of dilatation. No nonobstructed calculi. There is mineralization seen within the parenchyma of the upper pole rig ht kidney not seen as an acutely significant finding. Isodense masses and pyelonephritis are not excluded on noncontrast imaging. A few fluid-filled small bowel loops are present, non dilated. Mild enteritis would be possible. No e mergent GI process seen. Full assessment is limited is the absence of IV contrast.
--- NOTE | 2019-04-23 10:13 | ER ---
Nurse's Notes [facility] Name: Baljit Avery Age: 58 yrs Sex: Male : 1960 Arrival Date: 04/23/2019 Time: 05:45 Bed 20 Private MD: Linus Cadet V Diagnosis: Enteritis Presentation: 04/23 05:52 Presenting complaint: Patient states: Abdominal pain, nausea, diarrhea and can't sleep ao for a week. Transition of care: patient was not received from another setting of care. Onset of symptoms is unknown. Risk Assessment: Do you want to hurt yourself or someone else? Patient reports no desire to harm self or others. Initial Sepsis Screen: Does the patient meet any 2 criteria? No. Patient's initial sepsis screen is negative. Does the patient have a suspected source of infection? No. Patient's initial sepsis screen is negative. Care prior to arrival: None. 05:52 Method Of Arrival: Ambulatory ao 05:52 Acuity: JAYNA 3 ao Historical: - Allergies: 05:55 No Known Allergies; ao - Home Meds: 05:55 Unkown Blood pressure pill [Active]; ao - PMHx: 05:55 Hyperlipidemia; Hypertension; ao - PSHx: 05:55 Appendectomy; Amputated index; ao - Immunization history:: Adult Immunizations up to date. - Social history:: Smoking status: Patient/guardian denies using tobacco, Patient/guardian denies using alcohol, street drugs. - Ebola Screening: : Patient negative for fever greater than or equal to 101.5 degrees Fahrenheit, and additional compatible Ebola Virus Disease symptoms Patient denies exposure to infectious person Patient denies travel to an Ebola-affected area in the 21 days before illness onset. Screenin:57 Abuse screen: Denies threats or abuse. Denies injuries from another. Nutritional ao screening: No deficits noted. Tuberculosis screening: No symptoms or risk factors identified. Fall Risk None identified. Assessment: 05:56 General: Appears in no apparent distress. uncomfortable, Behavior is calm, cooperative, ao appropriate for age. Pain: Complains of pain in abdomen Pain currently is 6 out of 10 on a pain scale. Neuro: Level of Consciousness is awake, alert, obeys commands, Oriented to person, place, time, situation, Appropriate for age Moves all extremities. Full function Speech is normal, Facial symmetry appears normal. Cardiovascular: Denies chest pain, shortness of breath, Capillary refill < 3 seconds in bilateral Patient's skin is warm and dry. Respiratory: Airway is patent Respiratory effort is even, unlabored, Respiratory pattern is regular, symmetrical. GI: Bowel sounds present X 4 quads. Abd is soft and non tender X 4 quads. : No signs and/or symptoms were reported regarding the genitourinary system. EENT: No signs and/or symptoms were reported regarding the EENT system. Derm: Skin is intact, Skin is pink, warm \T\ dry. normal. Musculoskeletal: No signs and/or symptoms reported regarding the musculoskeletal system. Circulation, motion, and sensation intact. Range of motion: intact in all extremities. 07:30 Reassessment: Patient appears in no apparent distress at this time. Patient and/or em family updated on plan of care and expected duration. Pain level reassessed. Patient is alert, oriented x 3, equal unlabored respirations, skin warm/dry/pink. reports pain medication barely helped, rates pain 8/10, provider notified, new medication orders received. 08:07 Reassessment: Patient appears in no apparent distress at this time. Patient and/or em family updated on plan of care and expected duration. Pain level reassessed. Patient is alert, oriented x 3, equal unlabored respirations, skin warm/dry/pink. Patient states feeling better. 09:05 Reassessment: Patient appears in no apparent distress at this time. Patient and/or em family updated on plan of care and expected duration. Pain level reassessed. Patient is alert, oriented x 3, equal unlabored respirations, skin warm/dry/pink. Patient states feeling better. 09:54 Reassessment: Patient appears in no apparent distress at this time. pending CT results, em provider and charge nurse notified. Vital Signs: 05:53 BP 128 / 60; Pulse 65; Resp 16; Temp 99.1(O); Pulse Ox 97% ; Weight 85.28 kg (R); ao Height 5 ft. 11 in. (180.34 cm) (R); Pain 6/10; 07:30 BP 169 / 96; Pulse 66; Resp 18; Pulse Ox 99% on R/A; Pain 8/10; em 08:31 BP 166 / 95; Pulse 73; Resp 18; Pulse Ox 99% on R/A; Pain 6/10; em 05:53 Body Mass Index 26.22 (85.28 kg, 180.34 cm) ao ED Course: 05:45 Patient arrived in ED. ds1 05:53 Triage completed. ao 05:56 Linus Cadet MD is Private Physician. ds1 05:56 Arm band placed on right wrist. Patient placed in an exam room, on a stretcher, on ao pulse oximetry, Patient notified of wait time. 05:58 Patient has correct armband on for positive identification. Pulse ox on. NIBP on. ao 06:03 Freddie Gunter PA is PHCP. jr8 06:03 Fausto Freedman MD is Attending Physician. jr8 06:03 Fausto Freedman MD is Attending Physician. jr8 06:20 Inserted saline lock: 20 gauge in right antecubital area, using aseptic technique. ao Blood collected. 06:58 XRAY Abdomen Acute Series In Process Unspecified. EDMS 07:04 Luis Armando Costa LVN is Primary Nurse. em 07:51 CT completed. Patient tolerated procedure well. Patient moved back from CT. bq 07:55 CT Abd/Pelvis - Without Contrast In Process Unspecified. EDMS 10:12 Linus Cadet MD is Referral Physician. jr8 10:41 No provider procedures requiring assistance completed. IV discontinued, intact, ss bleeding controlled, No redness/swelling at site. Pressure dressing applied. Administered Medications: 06:55 Drug: morphine 4 mg {Note: Rass 0.} Route: IVP; Site: left antecubital; ao 07:32 Follow up: Response: No adverse reaction; Pain is unchanged, physician notified; RASS: em Alert and Calm (0) 06:58 Drug: Pepcid 20 mg Route: IVP; Site: left antecubital; ao 07:33 Follow up: Response: No adverse reaction em 06:59 Drug: NS 0.9% 1000 ml Route: IV; Rate: 1000 ml; Site: left antecubital; ao 10:40 Follow up: IV Status: Completed infusion; IV Intake: 1000ml ss 07:00 Drug: Zofran 4 mg Route: IVP; Site: left antecubital; ao 07:32 Follow up: Response: No adverse reaction em 07:45 Drug: morphine 4 mg {Note: RASS-0.} Route: IVP; Site: right antecubital; em 08:07 Follow up: Response: No adverse reaction; Marked relief of symptoms; Pain is decreased; em RASS: Alert and Calm (0) Intake: 10:40 IV: 1000ml; Total: 1000ml. ss Outcome: 10:12 Discharge ordered by . dhruv 10:42 Discharged to home ambulatory. ss 10:42 Condition: good 10:42 Discharge instructions given to patient, Instructed on discharge instructions, follow up and referral plans. medication usage, Demonstrated understanding of instructions, follow-up care, medications, Prescriptions given X 1. 10:42 Patient left the ED. ss Signatures: Dispatcher [employer] EDCarmen Juan Edgar, SHIRT SEWER SHIRT SEWER Nicole Laguerre ds1 Simona Ojeda RN RN Freddie Gunter PA PA jr8 Td Alejandro RN RN ao Corrections: (The following items were deleted from the chart) 07:10 06:55 morphine 4 mg IVP in left antecubital ao ao
--- NOTE | 2019-04-23 10:14 | EDPHYS ---
Physician Documentation [facility] Name: Baljit Avery Age: 58 yrs Sex: Male : 1960 Arrival Date: 04/23/2019 Time: 05:45 Bed 20 Private MD: Linus Cadet V ED Physician Fausto Freedman HPI: 04/23 07:08 This 58 yrs old Black Male presents to ER via Ambulatory with complaints of Abdominal jr8 Pain, Weakness. 07:08 The patient presents with abdominal pain that is diffuse. Onset: The symptoms/episode jr8 began/occurred acutely, 3 day(s) ago. The symptoms do not radiate. Associated signs and symptoms: Pertinent positives: diarrhea, nausea. The symptoms are described as burning, crampy. Modifying factors: The symptoms are alleviated by nothing, the symptoms are aggravated by nothing. Severity of pain: At its worst the pain was mild in the emergency department the pain is unchanged. The patient has not experienced similar symptoms in the past. The patient has been recently seen at the [facility] Emergency Department, this week, for similar complaints labs were performed, CT scan was performed, was given a prescription for antibiotics, was given a prescription for pain medications, was given a prescription for an antiemetic. Patient came back to ED today because he stomach feels like it is "burning" and he cannot sleep well. Stated that he is no longer vomiting and his diarrhea has decreased . Historical: - Allergies: 05:55 No Known Allergies; ao - Home Meds: 05:55 Unkown Blood pressure pill [Active]; ao - PMHx: 05:55 Hyperlipidemia; Hypertension; ao - PSHx: 05:55 Appendectomy; Amputated index; ao - Immunization history:: Adult Immunizations up to date. - Social history:: Smoking status: Patient/guardian denies using tobacco, Patient/guardian denies using alcohol, street drugs. - Ebola Screening: : Patient negative for fever greater than or equal to 101.5 degrees Fahrenheit, and additional compatible Ebola Virus Disease symptoms Patient denies exposure to infectious person Patient denies travel to an Ebola-affected area in the 21 days before illness onset. ROS: 07:08 Eyes: Negative for injury, pain, redness, and discharge, ENT: Negative for injury, jr8 pain, and discharge, Neck: Negative for injury, pain, and swelling, Cardiovascular: Negative for chest pain, palpitations, and edema, Respiratory: Negative for shortness of breath, cough, wheezing, and pleuritic chest pain, Back: Negative for injury and pain, MS/Extremity: Negative for injury and deformity, Skin: Negative for injury, rash, and discoloration, Neuro: Negative for headache, weakness, numbness, tingling, and seizure. 07:08 Abdomen/GI: Positive for abdominal pain, nausea, diarrhea, abdominal cramps, Negative for abdominal distension, anorexia, dysphagia, hematemesis, black/tarry stool, rectal pain, rectal bleeding, bowel incontinence, flatulence. Exam: 07:08 Eyes: Pupils equal round and reactive to light, extra-ocular motions intact. Lids and jr8 lashes normal. Conjunctiva and sclera are non-icteric and not injected. Cornea within normal limits. Periorbital areas with no swelling, redness, or edema. ENT: Nares patent. No nasal discharge, no septal abnormalities noted. Tympanic membranes are normal and external auditory canals are clear. Oropharynx with no redness, swelling, or masses, exudates, or evidence of obstruction, uvula midline. Mucous membranes moist. Neck: Trachea midline, no thyromegaly or masses palpated, and no cervical lymphadenopathy. Supple, full range of motion without nuchal rigidity, or vertebral point tenderness. No Meningismus. Cardiovascular: Regular rate and rhythm with a normal S1 and S2. No gallops, murmurs, or rubs. Normal PMI, no JVD. No pulse deficits. Respiratory: Lungs have equal breath sounds bilaterally, clear to auscultation and percussion. No rales, rhonchi or wheezes noted. No increased work of breathing, no retractions or nasal flaring. Back: No spinal tenderness. No costovertebral tenderness. Full range of motion. Skin: Warm, dry with normal turgor. Normal color with no rashes, no lesions, and no evidence of cellulitis. MS/ Extremity: Pulses equal, no cyanosis. Neurovascular intact. Full, normal range of motion. Neuro: Awake and alert, GCS 15, oriented to person, place, time, and situation. Cranial nerves II-XII grossly intact. Motor strength 5/5 in all extremities. Sensory grossly intact. Cerebellar exam normal. Normal gait. 07:08 Abdomen/GI: Inspection: abdomen appears normal, Bowel sounds: active, all quadrants, Palpation: soft, in all quadrants, mild abdominal tenderness, in the abdomen diffusely, rebound tenderness, is not appreciated, voluntary guarding, is not appreciated, involuntary guarding, is not appreciated, no appreciated organomegaly, Indicators: McBurney's point is not tender, Mcfadden's sign is negative, Rovsing's sign is negative, Liver: tenderness, is not appreciated. Vital Signs: 05:53 BP 128 / 60; Pulse 65; Resp 16; Temp 99.1(O); Pulse Ox 97% ; Weight 85.28 kg (R); ao Height 5 ft. 11 in. (180.34 cm) (R); Pain 6/10; 07:30 BP 169 / 96; Pulse 66; Resp 18; Pulse Ox 99% on R/A; Pain 8/10; em 08:31 BP 166 / 95; Pulse 73; Resp 18; Pulse Ox 99% on R/A; Pain 6/10; em 05:53 Body Mass Index 26.22 (85.28 kg, 180.34 cm) ao MDM: 06:04 Patient medically screened. jr8 10:08 Data reviewed: vital signs, nurses notes, lab test result(s), radiologic studies, CT jr8 scan, plain films, and as a result, I will discharge patient. Data interpreted: Pulse oximetry: on room air is 99 %. Interpretation: normal. Counseling: I had a detailed discussion with the patient and/or guardian regarding: the historical points, exam findings, and any diagnostic results supporting the discharge/admit diagnosis, lab results, radiology results, the need for outpatient follow up, a family practitioner, to return to the emergency department if symptoms worsen or persist or if there are any questions or concerns that arise at home. Response to treatment: the patient's symptoms have mildly improved after treatment. Special discussion: Based on the patient's Hx, exam, and Dx evaluation, there is no indication for emergent surgery or inpatient Tx. It is understood by the patient/guardian that if the Sx's persist or worsen they need to return immediately for re-evaluation. ED course: Re-imaging of patient shows improvement of enteritis. No ileus or obstruction. No other surgically emergent finding. Will have him continue medicine already given. To f/u with PCP in a couple of days. 04/23 06:26 Order name: Basic Metabolic Panel; Complete Time: 07:29 04/23 06:26 Order name: CBC with Diff; Complete Time: 07:29 04/23 06:26 Order name: Creatinine for Radiology; Complete Time: 07:29 04/23 06:26 Order name: Hepatic Function; Complete Time: 07:29 04/23 06:26 Order name: Lipase; Complete Time: 07:29 04/23 06:39 Order name: XRAY Abdomen Acute Series 04/23 06:26 Order name: IV Saline Lock; Complete Time: 06:51 04/23 06:26 Order name: Labs collected and sent; Complete Time: 06:51 04/23 07:36 Order name: CT Abd/Pelvis - Without Contrast; Complete Time: 10:08 Administered Medications: 06:55 Drug: morphine 4 mg {Note: Rass 0.} Route: IVP; Site: left antecubital; ao 07:32 Follow up: Response: No adverse reaction; Pain is unchanged, physician notified; RASS: em Alert and Calm (0) 06:58 Drug: Pepcid 20 mg Route: IVP; Site: left antecubital; ao 07:33 Follow up: Response: No adverse reaction em 06:59 Drug: NS 0.9% 1000 ml Route: IV; Rate: 1000 ml; Site: left antecubital; ao 10:40 Follow up: IV Status: Completed infusion; IV Intake: 1000ml ss 07:00 Drug: Zofran 4 mg Route: IVP; Site: left antecubital; ao 07:32 Follow up: Response: No adverse reaction em 07:45 Drug: morphine 4 mg {Note: RASS-0.} Route: IVP; Site: right antecubital; em 08:07 Follow up: Response: No adverse reaction; Marked relief of symptoms; Pain is decreased; em RASS: Alert and Calm (0) Disposition: 04/23/19 10:12 Discharged to Home. Impression: Enteritis. - Condition is Stable. - Discharge Instructions: Abdominal Pain, Adult. - Prescriptions for Tylenol- Codeine #3 300-30 mg Oral Tablet - take 2 tablets by ORAL route every 6 hours As needed; 12 tablet. - Medication Reconciliation Form, Thank You Letter, Antibiotic Education, Prescription Opioid Use form. - Follow up: Linus Cadet MD; When: 2 - 3 days; Reason: Recheck today's complaints, Continuance of care, Re-evaluation by your physician. - Problem is new. - Symptoms have improved. Signatures: Dispatcher [employer] EDWI Luis Armando Costa, FUMIGATOR AND STERILIZER FUMIGATOR AND STERILIZER Simona Frias RN RN ss Freddie Gunter PA PA jr8 Td Alejandro RN RN ao Corrections: (The following items were deleted from the chart) 10:42 10:12 04/23/2019 10:12 Discharged to Home. Impression: Enteritis. Condition is Stable. ss Forms are Medication Reconciliation Form, Thank You Letter, Antibiotic Education, Prescription Opioid Use. Follow up: Linus Cadet; When: 2 - 3 days; Reason: Recheck today's complaints, Continuance of care, Re-evaluation by your physician. Problem is new. Symptoms have improved. jr8
[2019-04-23 12:05] VITALS: O2SAT 99
[2019-04-23 12:06] VITALS: BP 166/95
--- NOTE | 2019-04-23 12:51 | RAD REPORT ---
EXAM DESCRIPTION: RAD - Abdomen Acute Series - 04/23/2019 7:00 am CLINICAL HISTORY: Abdominal pain COMPARISON: None. FINDINGS: Lungs are clear. Heart size and vessels are normal. No pleural effusion, pneumothorax or o ther acute cardiopulmonary process seen. Bowel gas pattern is nonspecific. A few mildly thickened small bowel loops in the left upper quadrant noted. No suspicious calcifications. No other suspicious for significant findings. IMPRESSION: A few mildly thickened small bowel loops left upper quadrant could indicate enteritis.
[2019-04-23 13:00] VITALS: TEMP 99.1
== END 2019-04-23 10:42 | disposition home or self-care (01) ==
LOC: ER 05:42
DX: K52.9 Noninfective gastroenteritis and colitis, unspecified (principal); I10 Essential (primary) hypertension; E78.5 Hyperlipidemia, unspecified
CPT/HCPCS: 96361; 85025; 80048; 36415; 80076; 83690; 74176; 74022; 96375; 96374; 99284; J7030; J2405